=== PATIENT | male | born 1955 | race Caucasian/White ===

== ENCOUNTER → 2019-12-11 | Outpatient (CLI) | payer MEDICARE ==
--- NOTE | 2019-12-11 17:05 | US ---
EXAMINATION TYPE: US scrotum with doppler. Grayscale and color Doppler Duplex imaging performed of t he scrotum. DATE OF EXAM: 12/11/2019 COMPARISON: NONE CLINICAL HISTORY: N50 TESTICULAR PAIN. Patient denies testicular but has palpable superior to left sc rotal sac and noted x 2 days. [place] denies trauma to scrotal sac. EXAM MEASUREMENTS: TESTICLES: Right Testicle: 4.1 x 2.5 x 2.4 cm Left Testicle: 3.2 x 2.1 x 1.5 cm Right Epididymis: 1.7 x 3.4 x 1.6cm Left Epididymis: 1.3 x 0.9 x 0.7 cm Doppler performed to assess for testicular vascularity; good bilateral color flow and waveforms are s een. There is no evidence of testicular torsion. Right Epididymis: multicystic epididymal head cysts seen with largest seen = 3.3 x 1.8 x 1.6cm. Small hydrocele seen inferior scrotal sac = 0.8 x 1.0 x 0.3cm. Multiple testicular cysts seen with larg est = 0.6 x 0.5cm. Left Epididymis: couple of epididymal head cysts seen with larger cyst = 0.4 x 0.4 x 0.3cm. Varicoce les seen inferior to left testicle with vein diameter measure = 0.31cm (abnormal as is greater than 0 .25cm) in neutral position. Heterogeneous left testicle is also noted. At patient's palpable noted superior to left scrotal sac: couple of adjacent cysts are seen with lar zari cyst = 0.8 x 0.9 x 0.5cm. IMPRESSION: No testicular torsion or mass. Right testicle is larger than the left. In the area of concern above the left testicle there are epididymal cysts that measure up to 9 x 5 mm . There is some heterogeneity in the posterior aspect of the left testicle without a discrete mass. T his is probably due to atrophy. No free fluid.
== END | disposition home or self-care (01) ==
LOC: RADUSWWP 14:40
PROVIDERS: ATTEND Internal Medicine
DX: N50.3 Cyst of epididymis (principal)
CPT/HCPCS: 76870; 93975

== ENCOUNTER → 2021-05-28 | Outpatient (CLI) | payer MEDICARE ==
--- NOTE | 2021-05-28 17:00 | ECHOF ---
Referral Reason:I25.10 CVD MEASUREMENTS -------- HEIGHT: 170.2 cm WEIGHT: 72.6 kg BP: IVSd: 1.8 cm (0.6 - 1.1) LVIDd: 3.3 cm (3.9 - 5.3) LVPWd: 1.4 cm (0.6 - 1.1) IVSs: 1.9 cm LVIDs: 2.3 cm LVPWs: 2.6 cm RVIDd: 3.3 cm (< 3.3) LAESV Index (A-L): 33.84 ml/m Ao Diam: 2.9 cm (2.0 - 3.7) AV Cusp: 1.2 cm (1.5 - 2.6) EPSS: 0.9 cm MV E Sylvester: 0.85 m/s MV DecT: 213 ms MV A Sylvester: 0.74 m/s MV E/A Ratio: 1.16 AV maxP.50 mmHg AV meanP.26 mmHg AR PHT: 648 ms RAP: 5.00 mmHg RVSP: 32.63 mmHg MV EF SLOPE: 70.34 mm/s (70 - 150) MV EXCURSION: 14.99 mm (> 18.000) FINDINGS -------- Sinus rhythm. This was a technically adequate study. The left ventricular size is normal. There is severe concentric left ventricular hypertrophy. Ove rall left ventricular systolic function is normal with, an EF between 55 - 60 %. The right ventricle is mildly enlarged. LA is midly dilated 29-33ml/m2. The right atrial size is normal. Interatrial and interventricular septum intact. There is mild aortic regurgitation. There is ovivwtlc-oc-utjmor aortic stenosis present. The maxi mum velocity across the aortic valve is 4.04m/s. Peak/mean gradient across the Aortic Valve is 65.5 0mmHg / 38.26mmHg. Mild mitral regurgitation is present. Mild tricuspid regurgitation present. There is no evidence of pulmonary hypertension. The right v entricular systolic pressure, as measured by Doppler, is 32.63mmHg. There is no pulmonic regurgitation present. The aortic root size is normal. IVC Not well visulized. There is no pericardial effusion. CONCLUSIONS -------- 1. The left ventricular size is normal. 2. There is severe concentric left ventricular hypertrophy. 3. Overall left ventricular systolic function is normal with, an EF between 55 - 60 %. 4. The right ventricle is mildly enlarged. 5. LA is midly dilated 29-33ml/m2. 6. There is mild aortic regurgitation. 7. There is hdivnfpn-hz-nmrhnn aortic stenosis present. 8. The maximum velocity across the aortic valve is 4.04m/s. 9. Peak/mean gradient across the Aortic Valve is 65.50mmHg / 38.26mmHg. 10. Mild mitral regurgitation is present. 11. Mild tricuspid regurgitation present. REPAIR TECHNICIAN: Kadie Diaz RDCS
== END | disposition home or self-care (01) ==
LOC: RADECHMAIN 12:01
PROVIDERS: ATTEND Internal Medicine
DX: I08.3 Combined rheumatic disorders of mitral, aortic and tricuspid valves (principal)
CPT/HCPCS: 93306